=== PATIENT | female | born 1950 | race Caucasian/White ===

== ENCOUNTER 2017-06-06 16:42 | Emergency (ER) | payer OTHER ==
[2017-06-06 17:03] VITALS: BMI 26.6
[2017-06-06] MEDS ORDERED: ZOFRAN INJ 4 MG VIAL IVP ONE (17:48)
[2017-06-06] MEDS ORDERED: NS 1000 ML 1,000 ML IV ONE (17:48)
--- NOTE | 2017-06-06 17:52 | DR.GENAD ---
HPI - PCP Primary Care Physician: ROWDY - Complaint/Symptoms Chief Complaint:: PT STATES SHE HAS BEEN HAVING DIARRHEA AND VOMITTING SINCE 8 AM THIS MORNING. STATES HER MUSCLES ARE STARTING TO CRAMP Self Treatment fo Chief Complaint: PT STATES SHE HAS TOOK TWO PHENERGAN AND TWO LOMOTIL TODAY - Source History Provided: Patient - Mode of Arrival Mode of Arrival: Ambulatory - Timing Onset of Chief Complaint: 06/06/17 PMH - PMH Past Medical History: Yes Past Medical History: Anxiety, Hypertension, Hypothyroidism Past Surgical History: No Surgical History: [employer] Surgery, Ortho Surgery - Family History History of Family Medical Conditions: Yes Family Medical History: Diabetes Mellitus, Hypertension - Social History Does patient currently use any type of tobacco product: No Have you used tobacco products in the last 12 months: No Type of Tobacco Use: None Does any household member use tobacco: No Alcohol Use: None Do you use any recreational Drugs:: No Lives With: Spouse Lives Where: Home - infectious screening In the last 2 months have you had wt loss of >10#?: NO Have you had fever, night sweats or hemotysis?: No Have you traveled outside the country in the last 6 months?: No Isolation: Standard ROS - Review of Systems Eyes: No Symptoms Reported ENTM: No Symptoms Reported Respiratoy: No Symptoms Reported Cardiovascular: No Symptoms Reported Gastrointestinal/Abdominal: No Symptoms Reported Genitourinary: No Symptoms Reported Neurological: No Symptoms Reported Musculoskeletal: No Symptoms Reported Integumentary: No Symptoms Reported Hematologic/Lymphatic: No Symptoms Reported Endocrine: No Symptoms Reported Psychiatric: No Symptoms Reported All Other Systems: Reviewed and Negative PE - Vital Signs Vitals: Temperature 98.0 F Pulse Rate [Right Brachial] 90 Pulse Rate 97 Respiratory Rate 17 Blood Pressure [Right Arm] 136/64 Blood Pressure 120/71 O2 Sat by Pulse Oximetry 96 - General General Appearance: Alert, In No Apparent Distress - Head Head Exam: Normal Inspection, Atraumatic - Eyes Eye exam: Normal Appearance, PERRL, EOMI - ENT ENT Exam: Normal Exam External Ear Exam: Normal External Inspection TM/Canal Exam: Bilateral Normal Nose Exam: Normal Nose Exam Mouth Exam: Normal Inspection Throat Exam: Normal Inspection - Neck Neck Exam: Normal Inspection, Full ROM - Chest Chest Inspection: Normal Inspection - Respiratory Respiratory Exam: Normal Lung Sounds Bilat Respiratory Exam: Bilateral Clear to Auscultation - Cardiovascular Cardiovascular Exam: Regular Rate, Normal Rhythm - Abdominal Exam Abdominal Exam: Normal Inspection, Normal Bowel Sounds, Soft Abdominal Tenderness: negative: RUQ, RLQ, LUQ, LLQ, Epigastrium, Suprapubic, Diffuse, Mild, Moderate, Severe, Other - Extremities Extremities Exam: Normal Inspection. negative: Normal Capillary Refill ( prolonged) - Back Back Exam: Normal Inspection - Neurologic Neurological Exam: Alert, Oriented X3, CN II-XII Intact - Psychiatric Psychiatric Exam: Normal Affect, Normal Mood - Skin Skin Exam: Warm, Dry, Intact Course - Reevaluation 1st: Improved - Education/Counseling Educated On: Treatment, Diagnosis, Prognosis ROR - Labs Reviewed Result Diagrams: 06/06/17 18:00 06/06/17 18:00 Laboratory: WBC 19.2 X10^3/uL (3.6-10.0) H 06/06/17 18:00 RBC 5.24 X10^6/uL (3.5-5.4) 06/06/17 18:00 Hgb 15.7 g/dL (12.0-16.0) 06/06/17 18:00 Hct 46.0 % (36.0-47.0) 06/06/17 18:00 MCV 87.9 fL (80.0-100.0) 06/06/17 18:00 MCH 30.0 pg (27.0-34.0) 06/06/17 18:00 MCHC 34.1 g/dL (33.0-35.0) 06/06/17 18:00 RDW 13.4 % (11.6-16.5) 06/06/17 18:00 Plt Count 403 X10^3/uL (150.0-450.0) 06/06/17 18:00 Plt Count Comment Adequate (ADEQUATE) 06/06/17 18:00 MPV 8.1 fL (7.4-11.0) 06/06/17 18:00 Neut % 93.4 % (42.0-75.0) H 06/06/17 18:00 Lymph % 3.6 % (21.0-51.0) L 06/06/17 18:00 Dickenson % 2.6 % (0.0-13.0) 06/06/17 18:00 Eos % 0.1 % (0.9-2.9) L 06/06/17 18:00 Baso % 0.3 % (0.2-1.0) 06/06/17 18:00 Neut # 17.9 x10^3/uL (2.2-4.8) H 06/06/17 18:00 Lymph # 0.7 X10^3/uL (1.3-2.9) L 06/06/17 18:00 Dickenson # 0.5 x10^3/uL (0.3-0.8) 06/06/17 18:00 Eos # 0.0 x10^3/uL (0.0-0.2) 06/06/17 18:00 Baso # 0.1 X10^3/uL (0.0-0.1) 06/06/17 18:00 Absolute Nucleated RBC 0.0 /100WBC 06/06/17 18:00 Total Counted 100 06/06/17 18:00 Neutrophils % (Manual) 81 % (39-76) H 06/06/17 18:00 Band Neutrophils % 6 % (0-10) 06/06/17 18:00 Lymphocytes % (Manual) 8 % (13-43) L 06/06/17 18:00 Monocytes % (Manual) 5 % (4-9) 06/06/17 18:00 Plt Morphology Comment Normal (NORMAL) 06/06/17 18:00 RBC Morphology Normal (NORMAL) 06/06/17 18:00 Sodium 139 mmol/L (136-145) 06/06/17 18:00 Corrected Sodium 140 mmol/L (136-145) 06/06/17 18:00 Potassium 4.0 mmol/L (3.5-5.1) 06/06/17 18:00 Chloride 101 mmol/L (98-107) 06/06/17 18:00 Carbon Dioxide 23.7 mmol/L (21-32) 06/06/17 18:00 BUN 21 mg/dL (7-18) H 06/06/17 18:00 Creatinine 1.68 mg/dL (0.55-1.02) H 06/06/17 18:00 Est GFR (MDRD) Af Amer 39 (>60) L 06/06/17 18:00 Est GFR (MDRD) Non-Af 32 (>60) L 06/06/17 18:00 Glucose 141 mg/dL (65-99) H 06/06/17 18:00 Calcium 9.8 mg/dL (8.5-10.1) 06/06/17 18:00 Corrected Calcium TNP 06/06/17 18:00 Total Bilirubin 0.70 mg/dL (0.2-1.0) 06/06/17 18:00 AST 17 Units/L (15-37) 06/06/17 18:00 ALT 22 Units/L (12-78) 06/06/17 18:00 Alkaline Phosphatase 102 Units/L (46-116) 06/06/17 18:00 Total Protein 9.7 g/dL (6.4-8.2) H 06/06/17 18:00 Albumin 4.6 g/dL (3.4-5.0) 06/06/17 18:00 Globulin 5.1 g/dL (2.5-4.5) H 06/06/17 18:00 Albumin/Globulin Ratio 0.9 Ratio (1.1-2.1) L 06/06/17 18:00 Amylase 70 Units/L (25-115) 06/06/17 18:00 Lipase 169 Units/L (73-393) 06/06/17 18:00 - Diagnosis Discharge Problem: Dehydration Vomiting alone Qualifiers: Vomiting type: unspecified Vomiting Intractability: non-intractable Qualified Code(s): R11.11 - Vomiting without nausea - Discharge Plan Condition: Stable - Follow ups/Referrals Follow ups/Referrals: NFD,None [Primary Care Provider] - 3 days - Instructions
[2017-06-06 18:22] LABS: BASOPHILS # (AUTO) 0.1 X10^3/uL (0.0-0.1); BASOPHILS % (AUTO) 0.3 % (0.2-1.0); EOSINOPHILS % (AUTO) 0.1 % (0.9-2.9); HEMOGLOBIN 15.7 g/dL (12.0-16.0); LYMPHOCYTES # (AUTO) 0.7 X10^3/uL (1.3-2.9); LYMPHOCYTES % (AUTO) 3.6 % (21.0-51.0); MEAN CORPUSCULAR HGB CONC 34.1 g/dL (33.0-35.0); MEAN CORPUSCULAR VOLUME 87.9 fL (80.0-100.0); MEAN PLATELET VOLUME 8.1 fL (7.4-11.0); MONOCYTES # (AUTO) 0.5 x10^3/uL (0.3-0.8); MONOCYTES % (AUTO) 2.6 % (0.0-13.0); NEUTROPHILS # (AUTO) 17.9 x10^3/uL (2.2-4.8); NEUTROPHILS % (AUTO) 93.4 % (42.0-75.0); PLATELET COUNT 403 X10^3/uL (150.0-450.0); RED BLOOD COUNT 5.24 X10^6/uL (3.5-5.4); RED CELL DISTRIBUTION WIDTH 13.4 % (11.6-16.5); WHITE BLOOD COUNT 19.2 X10^3/uL (3.6-10.0)
[2017-06-06 18:28] LABS: AMYLASE 70 Units/L (25-115); LIPASE 169 Units/L (73-393)
[2017-06-06 18:29] LABS: ALANINE AMINOTRANSFERASE 22 Units/L (12-78); ALBUMIN 4.6 g/dL (3.4-5.0); ALKALINE PHOSPHATASE 102 Units/L (46-116); ASPARTATE AMINO TRANSFERASE 17 Units/L (15-37); BLOOD UREA NITROGEN 21 mg/dL (7-18); CALCIUM 9.8 mg/dL (8.5-10.1); CARBON DIOXIDE 23.7 mmol/L (21-32); CHLORIDE 101 mmol/L (98-107); COR NA(FOR HYPERGLY) 140 mmol/L (136-145); CREATININE 1.68 mg/dL (0.55-1.02); SODIUM 139 mmol/L (136-145); TOTAL PROTEIN 9.7 g/dL (6.4-8.2); eGFR BLACK RACES 39 (>60); eGFR NON BLACK RACES 32 (>60)
[2017-06-06 18:30] LABS: BAND NEUTROPHILS % 6 % (0-10)
[2017-06-06 18:31] LABS: PLATELET MORPHOLOGY COMMENT NORMAL (NORMAL)
[2017-06-06 18:55] VITALS: BP 136/64
== END 2017-06-06 19:37 | disposition home or self-care (01) ==
LOC: ER 17:03
DX: R11.11 Vomiting without nausea (principal); R19.7 Diarrhea, unspecified
CPT/HCPCS: 36415; 80053; 82150; 83690; 85025; 96365; 96374; 99283; A4222; J2405